=== PATIENT | female | born 1935 | race African-American/Black ===

== ENCOUNTER 2018-03-12 21:56 | Emergency (ER) | payer MEDICARE ==
[~2018-03-12] VITALS: Wt 118.4 kg
[2018-03-12 21:56] VITALS: BP 131/69
[~2018-03-12 21:56] MED LIST: ANTIVERT/2525 M1 PO; ANTIVERT/2525 MG PO; DARVOCET N 1001 TAB PO; DAYPRO600 M1 PO; GLIPIZIDE10 MG PO; JANUVIA100 MG PO; LASIX20 MG PO; LISINOPRIL20 MG PO; LOVASTATIN20 MG PO; METFORMIN500 MG; MICRO-K10 MEQ PO; SYNTHROID0.125 MG PO; THYROID 0.23%1 POW PO; VICODIN 5/500 505 MG PO
[2018-03-12 22:26] LABS: BILIRUBIN 1+ (NEGATIVE); BLOOD NEGATIVE (NEGATIVE); CLARITY SL CLOUDY (CLEAR); COLOR YELLOW (YELLOW); GLUCOSE NEGATIVE (NEGATIVE); KETONE TRACE (NEGATIVE); LEUKO ESTERASE NEGATIVE (NEGATIVE); NITRITE POSITIVE (NEGATIVE); SPECIFIC GRAVITY >= 1.030 (1.005-1.030)
[2018-03-12 22:31] LABS: BACTERIA 3+
[2018-03-12 22:33] LABS: WBC 0-2 wbc/hpf (0-5)
[2018-03-12] MEDS ORDERED: MACROBID100 M1 PO (23:29)
[2018-03-12] MEDS ORDERED: Percocet 325 MG1 TAB PO (23:29)
[2018-03-12] MEDS ORDERED: Orphenadrine C100 MG PO (23:29)
== END 2018-03-12 23:39 | disposition home or self-care (01) ==
LOC: ED 21:56
PROVIDERS: Emergency Medicine Emergency Medical Services
DX: N39.0 Urinary tract infection, site not specified (principal); M51.16 Intervertebral disc disorders with radiculopathy, lumbar region; E66.01 Morbid (severe) obesity due to excess calories; E11.9 Type 2 diabetes mellitus without complications; I10 Essential (primary) hypertension; Z96.653 Presence of artificial knee joint, bilateral; Z98.890 Other specified postprocedural states; Z90.710 Acquired absence of both cervix and uterus; Z79.899 Other long term (current) drug therapy; Z88.8 Allergy status to other drugs, medicaments and biological substances

== ENCOUNTER 2018-03-18 18:34 | Inpatient (IN) | payer MEDICARE ==
[~2018-03-18] VITALS: Ht 157.4 cm; Wt 118.8 kg
[~2018-03-18 18:34] MED LIST changes: +MACROBID100 M1 PO; +Orphenadrine C100 MG PO; +Percocet 325 MG1 TAB PO
[2018-03-18 18:37] VITALS: BP 144/62
[2018-03-18 20:24] LABS: BILIRUBIN NEGATIVE (NEGATIVE); BLOOD NEGATIVE (NEGATIVE); CLARITY CLEAR (CLEAR); COLOR YELLOW (YELLOW); GLUCOSE 2+ (NEGATIVE); KETONE TRACE (NEGATIVE); LEUKO ESTERASE NEGATIVE (NEGATIVE); NITRITE NEGATIVE (NEGATIVE); PH 5.5 (5.0-9.0); SPECIFIC GRAVITY >= 1.030 (1.005-1.030); UROBILINOGEN 0.2 E.U./dl (0.2-1.0)
[2018-03-18 20:41] LABS: BACTERIA 1+; WBC 0-2 wbc/hpf (0-5)
[2018-03-18 21:04] VITALS: BP 160/71
[2018-03-18 22:36] VITALS: BP 164/67
[2018-03-19 00:20] VITALS: BP 116/75
[2018-03-19] MEDS ORDERED: GLUCOPHAGE500 M1 PO (00:48)
[2018-03-19] MEDS ORDERED: OXYBUTYNIN CHLOR5 MG PO (00:56)
[2018-03-19] MEDS ORDERED: OXYBUTYNIN CHLO15 MG PO (00:56)
[2018-03-19] MEDS ORDERED: BENADRYL ALLERG25 M5 PO (00:58)
[2018-03-19] MEDS ORDERED: VIT D PO (00:59)
[2018-03-19] MEDS ORDERED: COENZYME PO (01:01)
[2018-03-19] MEDS ORDERED: PROBIOTIC PO (01:02)
[2018-03-19] MEDS ORDERED: ASPIR-TRIN325 MG PO (01:03)
[2018-03-19] MEDS ORDERED: LANTUS SOL100 UNIT/1 SQ (01:16)
[2018-03-19] MEDS ORDERED: VICTOZA 3-PAK6 MG/ML SQ (01:16)
[2018-03-19 06:57] LABS: BASO % 0.4 % (0.0-1.0); EOS # 0.2 10*3/uL (0.0-0.4); EOS % 2.4 % (1.0-4.0); HEMATOCRIT 35.6 % (37.0-47.0); HEMOGLOBIN 11.8 g/dl (12.0-16.0); LYMPH # 2.2 10*3/uL (1.3-4.4); LYMPH % 23.5 % (27.0-41.0); MEAN CELL VOLUME 77.2 fl (81.0-99.0); MEAN CORPUSCULAR HGB 25.6 pg (27.0-31.0); MEAN CORPUSCULAR HGB CONC 33.1 g/dl (33.0-37.0); MEAN PLATELET VOLUME 10.5 fl (9.6-12.3); MONO # 0.9 10*3/uL (0.1-1.0); MONO % 9.4 % (3.0-9.0); PLATELET COUNT AUTOMATED 278 10*3/uL (130-400); RED BLOOD COUNT 4.61 10*6/uL (4.10-5.10); RED CELL DISTRI WIDTH 16.2 % (0-14.5); WHITE BLOOD COUNT 9.3 10*3/uL (4.8-10.8)
[2018-03-19 07:20] LABS: BUN 15 mg/dl (7-24); CHLORIDE 105 mmol/L (98-107); SODIUM 140 mmol/L (136-145)
[2018-03-19 07:22] LABS: CHOLESTEROL 127 mg/dL (<200); CREATININE 0.79 mg/dL (0.55-1.02); HDL CHOLESTEROL 41 mg/dl (40-60); LDL CHOLESTEROL 57 mg/dL (9-159); PHOSPHOROUS 3.5 mg/dL (2.5-4.9); TRIGLYCERIDES 146 mg/dl (<150); VLDL CHOLESTEROL 29 mg/dL (6-40)
[2018-03-19 08:00] VITALS: BP 152/66
[2018-03-19 12:00] VITALS: BP 134/64
[2018-03-19 16:00] VITALS: BP 156/71
[2018-03-19 20:00] VITALS: BP 146/75
[2018-03-19] MEDS ORDERED: SYNTHROID137 MCG PO (21:19)
[2018-03-19] MEDS ORDERED: METOPROLOL TART50 M1 PO (21:22)
[2018-03-19] MEDS ORDERED: LOVASTATIN40 MG PO (21:44)
[2018-03-20] VITALS: BP 150/72
[2018-03-20 08:00] VITALS: BP 154/92
[2018-03-20 12:00] VITALS: BP 155/89; BP 155/98
[2018-03-20 20:00] VITALS: BP 131/78
[2018-03-21] VITALS: BP 157/89
[2018-03-21 08:00] VITALS: BP 150/70
[2018-03-21 16:00] VITALS: BP 145/60
[2018-03-22] VITALS: BP 128/55
[2018-03-22 06:50] LABS: BASO # 0.1 10*3/uL (0.0-0.1); BASO % 0.7 % (0.0-1.0); EOS # 0.3 10*3/uL (0.0-0.4); EOS % 2.5 % (1.0-4.0); HEMATOCRIT 42.6 % (37.0-47.0); LYMPH # 3.5 10*3/uL (1.3-4.4); LYMPH % 35.2 % (27.0-41.0); MEAN CELL VOLUME 77.7 fl (81.0-99.0); MEAN CORPUSCULAR HGB 25.5 pg (27.0-31.0); MEAN CORPUSCULAR HGB CONC 32.9 g/dl (33.0-37.0); MEAN PLATELET VOLUME 10.5 fl (9.6-12.3); MONO # 0.9 10*3/uL (0.1-1.0); NEUT # 5.2 10*3/uL (2.3-7.9); NEUT % 52.1 % (47.0-73.0); PLATELET COUNT AUTOMATED 300 10*3/uL (130-400); RED BLOOD COUNT 5.48 10*6/uL (4.10-5.10); RED CELL DISTRI WIDTH 16.5 % (0-14.5); WHITE BLOOD COUNT 10.1 10*3/uL (4.8-10.8)
[2018-03-22 07:24] LABS: CREATININE 0.77 mg/dL (0.55-1.02)
[2018-03-22 08:00] VITALS: BP 130/61
[2018-03-22 13:24] VITALS: BP 121/61
[2018-03-22 16:00] VITALS: BP 123/57
[2018-03-22 20:00] VITALS: BP 148/62
[2018-03-23] VITALS: BP 152/77
[2018-03-23 08:00] VITALS: BP 131/60
[2018-03-23 12:00] VITALS: BP 119/57
[2018-03-23] MEDS ORDERED: Lantus SC (13:36)
[2018-03-23] MEDS ORDERED: Humalog SQ ×2 (13:36)
[2018-03-23] MEDS ORDERED: PREDNISONE20 M1 PO (13:36)
[2018-03-23] MEDS ORDERED: HYDROCODONE-AC1 EAC1 PO (13:36)
== END 2018-03-23 16:17 | disposition other institution (70) | DRG 552 ==
LOC: ED 18:34 → EDHOLD 23:10 → 4E 23:10 → 5E 03-20 15:29 → 4E 03-20 16:37
PROVIDERS: Emergency Medicine Emergency Medical Services; Internal Medicine
DX: M54.5 Low back pain (principal); E11.65 Type 2 diabetes mellitus with hyperglycemia; I35.0 Nonrheumatic aortic (valve) stenosis; N39.0 Urinary tract infection, site not specified; Z68.42 Body mass index [BMI] 45.0-49.9, adult; E66.01 Morbid (severe) obesity due to excess calories; Z78.9 Other specified health status; I87.2 Venous insufficiency (chronic) (peripheral); M48.00 Spinal stenosis, site unspecified; M43.10 Spondylolisthesis, site unspecified; M99.83 Other biomechanical lesions of lumbar region; E55.9 Vitamin D deficiency, unspecified; N32.81 Overactive bladder; E03.9 Hypothyroidism, unspecified; I10 Essential (primary) hypertension; Z96.653 Presence of artificial knee joint, bilateral; M51.17 Intervertebral disc disorders with radiculopathy, lumbosacral region; Z79.4 Long term (current) use of insulin; Z79.82 Long term (current) use of aspirin; Z79.84 Long term (current) use of oral hypoglycemic drugs; Z79.899 Other long term (current) drug therapy; Z98.49 Cataract extraction status, unspecified eye; Z90.710 Acquired absence of both cervix and uterus; Z90.49 Acquired absence of other specified parts of digestive tract; Z98.891 History of uterine scar from previous surgery; Z82.49 Family history of ischemic heart disease and other diseases of the circulatory system; Z83.3 Family history of diabetes mellitus; Z82.3 Family history of stroke

== ENCOUNTER 2018-03-26 06:28 | Emergency (ER) | payer MEDICARE ==
[~2018-03-26] VITALS: Ht 157.4 cm; Wt 118.4 kg
--- NOTE | ~2018-03-26 | EKG ---
[place], [place] ELECTROCARDIOGRAM REPORT NAME: ANGELITO BRISCOE UNIT #: [id number] ROOM: DOCTOR: EPIPHANY DRAFT REPORT BIRTHDATE: [birth year] [facility] Test Date: 2018-03-26 Test Time: 06:42:18 Pat Name: ANGELITO BRISCOE Department: Room: Gender: F Document Control Manager: : 1935 Requested By: GREGORIO TRINH Order Number: [id number] Reading MD: Brando Austin MD Measurements Intervals [place] Rate: 68 P: 18 ME: 146 QRS: -44 QRSD: 133 T: 74 QT: 419 QTc: 446 Interpretive Statements Sinus rhythm Nonspecific IVCD with LAFB Left ventricular hypertrophy Electronically Signed On 03-26-2018 20:35:02 PDT by Brando Austin MD CM:EKGRPT:ELECTROCARDIOGRAM REPORT 34 GREGORIO PENG DRAFT REPORT GREGORIO TRINH DO
[~2018-03-26 06:28] MED LIST changes: +ASPIR-TRIN325 MG PO; +BENADRYL ALLERG25 M5 PO; +COENZYME PO; +GLUCOPHAGE500 M1 PO; +HYDROCODONE-AC1 EAC1 PO; +Humalog SQ; +LANTUS SOL100 UNIT/1 SQ; +LOVASTATIN40 MG PO; +Lantus SC; +METOPROLOL TART50 M1 PO; +OXYBUTYNIN CHLO15 MG PO; +OXYBUTYNIN CHLOR5 MG PO; +PREDNISONE20 M1 PO; +PROBIOTIC PO; +SYNTHROID137 MCG PO; +VICTOZA 3-PAK6 MG/ML SQ; +VIT D PO
[2018-03-26 06:48] LABS: BASO % 0.2 % (0.0-1.0); EOS # 0.2 10*3/uL (0.0-0.4); EOS % 1.8 % (1.0-4.0); HEMATOCRIT 39.4 % (37.0-47.0); HEMOGLOBIN 13.4 g/dl (12.0-16.0); LYMPH # 3.4 10*3/uL (1.3-4.4); LYMPH % 33.1 % (27.0-41.0); MEAN CELL VOLUME 76.1 fl (81.0-99.0); MEAN CORPUSCULAR HGB 25.9 pg (27.0-31.0); MEAN PLATELET VOLUME 10.2 fl (9.6-12.3); MONO # 0.7 10*3/uL (0.1-1.0); NEUT # 5.9 10*3/uL (2.3-7.9); NEUT % 57.6 % (47.0-73.0); PLATELET COUNT AUTOMATED 294 10*3/uL (130-400); RED BLOOD COUNT 5.18 10*6/uL (4.10-5.10); RED CELL DISTRI WIDTH 16.6 % (0-14.5); WHITE BLOOD COUNT 10.3 10*3/uL (4.8-10.8)
[2018-03-26 07:02] LABS: ACT PARTIAL THROMBO TIME 21.1 SECONDS (20.8-31.5); INTERNATIONAL NORM RATIO 0.9 (2.0-3.5)
[2018-03-26 07:04] LABS: ALBUMIN 3.2 gm/dl (3.1-4.5); ALKALINE PHOSPHATASE 62 U/L (45-117); BUN 19 mg/dl (7-24); CHLORIDE 100 mmol/L (98-107); CREATININE 0.71 mg/dL (0.55-1.02); POTASSIUM 4.3 mmol/L (3.5-5.1); SGOT/AST 9 IU/L (3-35); SGPT/ALT 27 U/L (12-78); SODIUM 139 mmol/L (136-145); TOTAL PROTEIN 6.6 gm/dL (6.4-8.2)
[2018-03-26 07:05] LABS: TROPONIN I < 0.015 ng/ml (<0.045)
[2018-03-26 08:33] VITALS: BP 137/95
[2018-03-26 11:35] LABS: BILIRUBIN NEGATIVE (NEGATIVE); BLOOD NEGATIVE (NEGATIVE); CLARITY SL CLOUDY (CLEAR); COLOR YELLOW (YELLOW); GLUCOSE NEGATIVE (NEGATIVE); KETONE NEGATIVE (NEGATIVE); LEUKO ESTERASE NEGATIVE (NEGATIVE); NITRITE NEGATIVE (NEGATIVE); SPECIFIC GRAVITY <= 1.005 (1.005-1.030); UROBILINOGEN 0.2 E.U./dl (0.2-1.0)
[2018-03-26 11:48] LABS: BACTERIA 4+; WBC 0-2 wbc/hpf (0-5)
== END 2018-03-26 10:31 | disposition home or self-care (01) ==
LOC: ED 06:28
PROVIDERS: Emergency Medicine
DX: R07.89 Other chest pain (principal); G89.29 Other chronic pain; M54.5 Low back pain; I10 Essential (primary) hypertension; E11.9 Type 2 diabetes mellitus without complications; E03.9 Hypothyroidism, unspecified; Z88.8 Allergy status to other drugs, medicaments and biological substances; Z79.899 Other long term (current) drug therapy; Z79.82 Long term (current) use of aspirin

== ENCOUNTER → 2018-05-28 | Outpatient (CLI) | payer MEDICARE ==
[~2018-05-28] MED LIST changes: +AMITRIPTYLINE25 MG PO; +AMITRIPTYLINE50 MG PO; +CIPRO250 MG PO; +CYCLOBENZAPRINE10 MG PO; +CYMBALTA20 M1 PO; +LOPRESSOR25 MG PO; +NORVASC2.5 MG PO; +VITAMIN D5000 UNIT PO
== END | disposition home or self-care (01) ==
LOC: RESCLI 00:26
DX: Z12.11 Encounter for screening for malignant neoplasm of colon (principal); I10 Essential (primary) hypertension; E11.59 Type 2 diabetes mellitus with other circulatory complications; R30.0 Dysuria; E03.9 Hypothyroidism, unspecified; I35.9 Nonrheumatic aortic valve disorder, unspecified; E78.5 Hyperlipidemia, unspecified; E66.9 Obesity, unspecified; E55.9 Vitamin D deficiency, unspecified; N39.0 Urinary tract infection, site not specified; N39.3 Stress incontinence (female) (male); Z79.899 Other long term (current) drug therapy; Z79.4 Long term (current) use of insulin; Z79.82 Long term (current) use of aspirin; Z68.42 Body mass index [BMI] 45.0-49.9, adult; Z88.8 Allergy status to other drugs, medicaments and biological substances

== ENCOUNTER 2018-07-03 10:13 | Emergency (ER) | payer MEDICARE ==
[~2018-07-03] VITALS: Ht 157.4 cm; Wt 103.0 kg
--- NOTE | ~2018-07-03 | EKG ---
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
[2018-07-03 10:17] VITALS: BP 126/53
[2018-07-03 10:49] LABS: BASO % 0.4 % (0.0-1.0); EOS # 0.3 10*3/uL (0.0-0.4); EOS % 2.4 % (1.0-4.0); HEMATOCRIT 39.6 % (37.0-47.0); HEMOGLOBIN 13.5 g/dl (12.0-16.0); LYMPH # 1.3 10*3/uL (1.3-4.4); LYMPH % 12.2 % (27.0-41.0); MEAN CELL VOLUME 78.3 fl (81.0-99.0); MEAN CORPUSCULAR HGB 26.7 pg (27.0-31.0); MEAN CORPUSCULAR HGB CONC 34.1 g/dl (33.0-37.0); MONO # 0.6 10*3/uL (0.1-1.0); MONO % 5.1 % (3.0-9.0); NEUT # 8.6 10*3/uL (2.3-7.9); NEUT % 79.7 % (47.0-73.0); PLATELET COUNT AUTOMATED 258 10*3/uL (130-400); RED BLOOD COUNT 5.06 10*6/uL (4.10-5.10); RED CELL DISTRI WIDTH 15.9 % (0-14.5); WHITE BLOOD COUNT 10.8 10*3/uL (4.8-10.8)
[2018-07-03 11:04] LABS: ALBUMIN 3.3 gm/dl (3.1-4.5); ALKALINE PHOSPHATASE 69 U/L (45-117); BUN 20 mg/dl (7-24); CHLORIDE 104 mmol/L (98-107); CREATININE 0.68 mg/dL (0.55-1.02); POTASSIUM 4.4 mmol/L (3.5-5.1); SGOT/AST 11 IU/L (3-35); SGPT/ALT 16 U/L (12-78); SODIUM 139 mmol/L (136-145); TOTAL PROTEIN 7.2 gm/dL (6.4-8.2)
[2018-07-03 11:06] LABS: TROPONIN I < 0.015 ng/ml (<0.045)
[2018-07-03 11:09] LABS: BILIRUBIN NEGATIVE (NEGATIVE); BLOOD TRACE-INTACT (NEGATIVE); CLARITY CLOUDY (CLEAR); COLOR YELLOW (YELLOW); GLUCOSE NEGATIVE (NEGATIVE); KETONE NEGATIVE (NEGATIVE); LEUKO ESTERASE NEGATIVE (NEGATIVE); NITRITE POSITIVE (NEGATIVE); PH 6.5 (5.0-9.0); UROBILINOGEN 0.2 E.U./dl (0.2-1.0)
[2018-07-03 11:20] LABS: BACTERIA 4+; YEAST TRACE
== END 2018-07-03 11:28 | disposition home or self-care (01) ==
LOC: ED 10:13
PROVIDERS: Nurse Practitioner Family
DX: N39.0 Urinary tract infection, site not specified (principal); I10 Essential (primary) hypertension; E11.9 Type 2 diabetes mellitus without complications; E66.01 Morbid (severe) obesity due to excess calories; E03.9 Hypothyroidism, unspecified; Z88.8 Allergy status to other drugs, medicaments and biological substances; Z88.6 Allergy status to analgesic agent; Z79.899 Other long term (current) drug therapy; Z79.82 Long term (current) use of aspirin

== ENCOUNTER 2018-08-31 16:56 | Emergency (ER) | payer OTHER, MEDICARE ==
[~2018-08-31] VITALS: Wt 117.9 kg
--- NOTE | ~2018-08-31 | EKG ---
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
[2018-08-31 19:52] VITALS: BP 147/64
[2018-10-09] MEDS ORDERED: AMITRIPTYLINE150 M1 PO (02:25)
[2018-10-09] MEDS ORDERED: AMITRIPTYLINE25 MG PO (02:25)
[2018-10-09] MEDS ORDERED: MIRALAX POWDER17 G1 PO (02:36)
[2018-10-09] MEDS ORDERED: MILK OF MA400 MG/5 M PO (02:39)
[2018-10-09] MEDS ORDERED: PINK BISMU PO (02:42)
[2018-10-09] MEDS ORDERED: ONDANSETRON HYDR4 M1 PO (02:42)
[2018-10-09] MEDS ORDERED: HYDROCODONE AC PO (02:43)
[2018-10-09] MEDS ORDERED: GABAPENTIN100 M2 PO (02:43)
[2018-10-09] MEDS ORDERED: MIRTAZAPINE7.5 MG PO (02:44)
[2018-10-09] MEDS ORDERED: ROBAXIN500 M1 PO (02:46)
[2018-10-09] MEDS ORDERED: LIDODERM1 EACH T (02:47)
[2018-10-09] MEDS ORDERED: DULCOLAX STOOL100 M1 PO (02:49)
[2018-10-09] MEDS ORDERED: Ipratropium Brom3 ML INH (02:50)
[2018-10-11] MEDS ORDERED: SEPTDS PO (10:52)
[2018-10-14] MEDS ORDERED: AMINOPHYLLIN200 MG PO (13:57)
[2018-10-14] MEDS ORDERED: HYDROCODONE AC PO (13:57)
[2018-10-14] MEDS ORDERED: METRONIDAZOLE500 M1 PO (13:57)
[2018-10-17] MEDS ORDERED: LOPRESSOR25 MG PO (03:44)
[2018-10-17] MEDS ORDERED: KLOR-CON M2020 ME1 PO (03:45)
== END 2018-08-31 20:55 | disposition short-term general hospital (02) ==
LOC: ED 16:56
DX: T14.90XA Injury, unspecified, initial encounter (principal); R07.81 Pleurodynia; R07.9 Chest pain, unspecified; G89.29 Other chronic pain; E11.9 Type 2 diabetes mellitus without complications; I10 Essential (primary) hypertension; E03.9 Hypothyroidism, unspecified; Z88.8 Allergy status to other drugs, medicaments and biological substances; Z79.899 Other long term (current) drug therapy; Z79.84 Long term (current) use of oral hypoglycemic drugs; Z79.82 Long term (current) use of aspirin; Z79.4 Long term (current) use of insulin; Z90.710 Acquired absence of both cervix and uterus; Z90.49 Acquired absence of other specified parts of digestive tract; V89.2XXA Person injured in unspecified motor-vehicle accident, traffic, initial encounter; Y93.I9 Activity, other involving external motion; Y92.488 Other paved roadways as the place of occurrence of the external cause; Y99.8 Other external cause status

== ENCOUNTER 2018-09-20 13:47 | Emergency (ER) | payer MEDICARE, OTHER ==
[~2018-09-20] VITALS: Wt 118.4 kg
--- NOTE | ~2018-09-20 | EKG ---
[place], [place] ELECTROCARDIOGRAM REPORT NAME: ANGELITO BRISCOE UNIT #: [id number] ROOM: DOCTOR: [facility] DRAFT REPORT BIRTHDATE: [birth year] [facility] Test Date: 2018-09-20 Test Time: 14:22:31 Pat Name: ANGELITO BRISCOE [facility] Gender: F Bioinformatician: EKG.WV : 1935 Requested By: LILLIAN IBARRA Order Number: [id number] Reading MD: Babak Armstrong MD Measurements Intervals [place] Rate: 96 P: 40 IA: 153 QRS: -47 QRSD: 155 T: 105 QT: 390 QTc: 493 Interpretive Statements Sinus tachycardia Multiple ventricular premature complexes Left bundle branch block Compared to ECG 08/31/2018 17:16:30 Ventricular premature complex(es) now present Sinus rhythm no longer present Electronically Signed On 09-21-2018 9:26:14 PST by Babak Armstrong MD CM:EKGRPT:ELECTROCARDIOGRAM REPORT 1422 0926 LILLIAN DAVIS DRAFT REPORT LILLIAN IBARRA M.D.
[2018-09-20 14:22] LABS: BASO % 0.3 % (0.0-1.0); EOS # 0.4 10*3/uL (0.0-0.4); EOS % 3.4 % (1.0-4.0); HEMATOCRIT 36.6 % (37.0-47.0); HEMOGLOBIN 12.3 g/dl (12.0-16.0); LYMPH % 8.4 % (27.0-41.0); MEAN CELL VOLUME 77.9 fl (81.0-99.0); MEAN CORPUSCULAR HGB 26.2 pg (27.0-31.0); MEAN CORPUSCULAR HGB CONC 33.6 g/dl (33.0-37.0); MEAN PLATELET VOLUME 9.5 fl (9.6-12.3); MONO # 0.7 10*3/uL (0.1-1.0); MONO % 6.1 % (3.0-9.0); NEUT # 9.7 10*3/uL (2.3-7.9); NEUT % 81.5 % (47.0-73.0); PLATELET COUNT AUTOMATED 449 10*3/uL (130-400); WHITE BLOOD COUNT 11.9 10*3/uL (4.8-10.8)
[2018-09-20 14:40] LABS: ALKALINE PHOSPHATASE 175 U/L (45-117); BUN 12 mg/dl (7-24); CHLORIDE 98 mmol/L (98-107); POTASSIUM 4.1 mmol/L (3.5-5.1); SGOT/AST 16 IU/L (3-35); SGPT/ALT 15 U/L (12-78); SODIUM 137 mmol/L (136-145); TOTAL PROTEIN 7.5 gm/dL (6.4-8.2); TROPONIN I 0.019 ng/ml (<0.045)
[2018-09-20 16:49] VITALS: BP 114/59
[2018-10-09] MEDS ORDERED: AMITRIPTYLINE25 MG PO (02:25)
[2018-10-09] MEDS ORDERED: AMITRIPTYLINE150 M1 PO (02:25)
[2018-10-09] MEDS ORDERED: MIRALAX POWDER17 G1 PO (02:36)
[2018-10-09] MEDS ORDERED: MILK OF MA400 MG/5 M PO (02:39)
[2018-10-09] MEDS ORDERED: ONDANSETRON HYDR4 M1 PO (02:42)
[2018-10-09] MEDS ORDERED: PINK BISMU PO (02:42)
[2018-10-09] MEDS ORDERED: GABAPENTIN100 M2 PO (02:43)
[2018-10-09] MEDS ORDERED: HYDROCODONE AC PO (02:43)
[2018-10-09] MEDS ORDERED: MIRTAZAPINE7.5 MG PO (02:44)
[2018-10-09] MEDS ORDERED: ROBAXIN500 M1 PO (02:46)
[2018-10-09] MEDS ORDERED: LIDODERM1 EACH T (02:47)
[2018-10-09] MEDS ORDERED: DULCOLAX STOOL100 M1 PO (02:49)
[2018-10-09] MEDS ORDERED: Ipratropium Brom3 ML INH (02:50)
[2018-10-11] MEDS ORDERED: SEPTDS PO (10:52)
[2018-10-14] MEDS ORDERED: AMINOPHYLLIN200 MG PO (13:57)
[2018-10-14] MEDS ORDERED: METRONIDAZOLE500 M1 PO (13:57)
[2018-10-14] MEDS ORDERED: HYDROCODONE AC PO (13:57)
[2018-10-17] MEDS ORDERED: LOPRESSOR25 MG PO (03:44)
[2018-10-17] MEDS ORDERED: KLOR-CON M2020 ME1 PO (03:45)
== END 2018-09-20 16:08 | disposition home or self-care (01) ==
LOC: ED 13:47
PROVIDERS: Emergency Medicine
DX: R07.89 Other chest pain (principal); R07.81 Pleurodynia; I10 Essential (primary) hypertension; E03.9 Hypothyroidism, unspecified; E11.9 Type 2 diabetes mellitus without complications; E66.01 Morbid (severe) obesity due to excess calories; Z79.82 Long term (current) use of aspirin; Z79.899 Other long term (current) drug therapy; Z88.8 Allergy status to other drugs, medicaments and biological substances; Z88.6 Allergy status to analgesic agent